=== PATIENT | female | born 1950 | race Two or more races ===

== ENCOUNTER 2017-01-26 09:20 | Day surgery (SDC) | payer OTHER ==
[2017-01-22 11:46] VITALS: BMI 27.3
[~2017-01-26 09:20] MED LIST: LEVOFLOXACIN 500 MG PREMIX BAG IVPB ONE
[2017-01-26] MEDS ORDERED: MIDAZOLAM HCL 2 MG/2 ML SINGLE DOSE VIAL ONE ×2 (11:13→11:20)
[2017-01-26] MEDS ORDERED: LEVOFLOXACIN 500 MG PREMIX BAG IVPB ONE (11:15)
[2017-01-26] MEDS ORDERED: LEVOFLOXACIN 500 MG IVPB 100 ML IVPB ONE (11:18)
[2017-01-26] MEDS ORDERED: ONDANSETRON 4 MG/2 ML VIAL IVPUSH PRN (11:23)
[2017-01-26] MEDS ORDERED: oxyCODONE HCL 5 MG TABLET PO PRN (11:23)
[2017-01-26] MEDS ORDERED: PROMETHAZINE HCL 25 MG/1 ML VIAL IVPUSH PRN (11:23)
[2017-01-26] MEDS ORDERED: LACTATED RINGERS SOLUTION 1,000 ML IV SCH (11:30)
[2017-01-26 12:48] VITALS: TEMP 97.6
--- NOTE | 2017-01-26 13:10 | OP ---
Operative Note - Note: Operative Date: 01/26/17 Pre-Operative Diagnosis: left renal stone Operation: left eswl Findings: 5 mm left renal stone Post-Operative Diagnosis: Same as Pre-op Surgeon: Terry Altamirano Anesthesia: General
[2017-01-26 14:22] VITALS: BP 121/72; PULSE 60
--- NOTE | 2017-01-27 11:01 | OP ---
DATE OF OPERATION: 01/26/2017 PREOPERATIVE DIAGNOSIS: Left renal stone. POSTOPERATIVE DIAGNOSIS: Left renal stone. PROCEDURE: Left extracorporeal shock wave lithotripsy. ATTENDING: Eulalio Barnard MD ANESTHESIA: General. DESCRIPTION OF OPERATION: The patient was brought in the operating room, placed in supine position on the operating room table. Ultrasonography and fluoroscopy were performed. A 5-mm left mid-pole stone was noted. Anesthesia was administered, as was preoperative antibiotics. Then, 2500 impulses at 17 joules of power were administered to the stone to perform lithotripsy. Excellent fragmentation of the stone was noted. No complications were noted. Disposition of the patient was to the recovery room. EULALIO BARNARD M.D. [id number]
== END 2017-01-26 14:22 | disposition home or self-care (01) ==
LOC: JASU-SURG 09:20
PROVIDERS: ATTEND Urology
PROC: 0TF4XZZ Fragmentation in Left Kidney Pelvis, External Approach (ICD-10-PCS; principal; 2017-01-26 11:00)
DX: N20.0 Calculus of kidney (principal)
CPT/HCPCS: 94760

== ENCOUNTER 2019-11-15 11:20 | Emergency (ER) | payer OTHER ==
[2019-11-15 11:35] VITALS: BP 150/90; PULSE 91; TEMP 98.6; BMI 24.7
[2019-11-15] MEDS ORDERED: KETOROLAC TROMETHAMINE 30 MG/1 ML VIAL IVPUSH ONE (11:37)
[2019-11-15] MEDS ORDERED: morphine CARPU-JECT 4 MG/1 ML DISP.SYRIN IM ONE (11:37)
[2019-11-15] MEDS ORDERED: morphine SULFATE 4 MG/ML VIAL ONE (12:02)
[2019-11-15] MEDS ORDERED: KETOROLAC TROMETHAMINE 15 MG/ML VIAL ONE (12:02)
[2019-11-15] MEDS ORDERED: COLCHICINE 0.6 MG CAP PO ONE (12:12)
--- NOTE | 2019-11-15 12:12 | PDOC ---
History of Present Illness - General Chief Complaint: Injury Stated Complaint: LEFT KNEE SWELLING Time Seen by Provider: 11/15/19 11:23 - History of Present Illness Initial Comments: 11/15/19 12:23 69 years old past medical history significant hypertension and asthma presents to the ED with 2-week history of left knee swelling. Patient tripped over her cat approximately 2 weeks ago twisted her knee no direct trauma has had a swollen knee since. Has tried ice elevation and Motrin with no significant improvement pain is moderate to severe 9 out of 10 worse with movement no significant alleviating factors. No recent tick exposures no fever no chills weight loss no other joint involvement Past History - Medical History Allergies/Adverse Reactions: Allergies Allergy/AdvReac Type Severity Reaction Status Date / Time No Known Allergies Allergy Verified 11/15/19 11:21 Home Medications: Ambulatory Orders Albuterol Sulfate Inhaler - [Ventolin Hfa Inhaler -] 1 - 2 inh PO Q4H PRN 01/26/17 Brinzolamide [Azopt] 5 ml OP BID 01/26/17 Budesonide/Formeterol Fumarate [SYMBICORT 160/4.5mcg -] 1 inh PO BID 01/26/17 Fluticasone Propionate [Flovent Diskus] 100 mcg IH BID 01/26/17 Latanoprost 2.5 ml OP HS 01/26/17 Calcium Carbonate/Vitamin D3 [Calcium 600 + Vit D Tablet] 1 each PO BID 11/15/19 Cholecalciferol (Vitamin D3) [Vitamin D3 -] 1,000 unit PO DAILY 11/15/19 Colchicine [Colcrys] 0.6 mg PO DAILY 3 Days #3 tab 11/15/19 Indomethacin [Indocin -] 50 mg PO BID #14 capsule 11/15/19 Losartan Potassium 25 mg PO DAILY 11/15/19 Anemia: Yes (THALASEMIA MINOR) Asthma: Yes Cancer: No Cardiac Disorders: No CVA: No COPD: No CHF: No Dementia: No Diabetes: No GI Disorders: No Disorders: No HTN: Yes Hypercholesterolemia: Yes Liver Disease: No Seizures: No Thyroid Disease: No - Surgical History Orthopedic Surgery: Yes (RIGHT KNEE ARTHROSCOPY) - Psycho-Social/Smoking History Smoking History: Never smoked Have you smoked in the past 12 months: No Information on smoking cessation initiated: No - Substance Abuse Hx (Audit-C & DAST Scrn) How often the patient has a drink containing alcohol: Never Score: In Men: 4 or > Positive; In Women: 3 or > Positive: 0 Screen Result (Pos requires Nsg. Audit-10AR): Negative In the last yr the pt used illegal drug/Rx for NonMed reason: No Score: Yes response is considered Positive: 0 Screen Result (Positive result requires Nsg. DAST-10): Negative Review of Systems - Review of Systems Comments:: 11/15/19 12:23 ROS: A complete review of 10 out of 10 review of systems is taken and is negative apart from what is previously mentioned below and in the HPI. *Physical Exam - Vital Signs Last Vital Signs Temp Pulse Resp BP Pulse Ox 98.6 F 91 H 20 150/90 96 11/15/19 11:20 11/15/19 11:20 11/15/19 11:20 11/15/19 11:20 11/15/19 11:20 - Physical Exam 11/15/19 12:22 Vitals: Triage Vital signs reviewed General Appearance: No acute distress, well nourished well developed, Head: Atraumatic, Extremities:Left knee with effusion limited range of motion secondary to pain no anterior posterior draw, neurovascular intact distally no evidence of cellulitis slight warmth Skin: Warm and dry, no rashes or lesions, no rash, no petechiae Neuro: strength intact to all extremities, sensation intact to all extremities, gait normal Psych: Normal mood, normal affect ED Treatment Course - RADIOLOGY Radiology Studies Ordered: Category Date Time Status KNEE 2 POS-LEFT [RAD] Stat Radiology 11/15/19 11:38 Taken - Medications Given in the ED: ED Medications Discontinued Medications Generic Name Dose Route Start Last Admin Trade Name Freq PRN Reason Stop Dose Admin Ketorolac Tromethamine 15 mg 11/15/19 11:37 11/15/19 12:09 Toradol Injection - IVPUSH 11/15/19 11:38 15 mg ONCE ONE Administration Morphine Sulfate 4 mg 11/15/19 11:37 11/15/19 12:08 Morphine Injection - IM 11/15/19 11:38 4 mg ONCE ONE Administration Medical Decision Making - Medical Decision Making 11/15/19 12:24 X-ray demonstrates [id number] likely arthritic effusion Case discussed with orthopedics will follow-up tomorrow We will treat empirically with colchicine and NSAIDs in case of gouty flare until patient can see orthopedics tomorrow Findings, need for follow-up and strict return instructions discussed with patient. Discharge - Discharge Information Problems reviewed: Yes Clinical Impression/Diagnosis: Knee swelling Disposition: HOME - Admission No - Follow up/Referral Referrals: Corey Vance MD [Staff Physician] - - Patient Discharge Instructions Patient Printed Discharge Instructions: Knee Sprain Additional Instructions: Take indomethacin and colchicine as prescribed. Ice elevate rest. Follow-up tomorrow morning with Dr. Vance at 1120 am, here at the hospital 1 level below main level. Please fill out preregistration information that was sent to you via email online to expedite your appointment. Return to ED for any severe worsening symptoms fever chills redness that develops over the knee or for any concerns. - Post Discharge Activity
[2019-11-15] MEDS ORDERED: COLCHICINE 0.6 MG CAP ONE (12:24)
== END 2019-11-15 12:37 | disposition home or self-care (01) ==
LOC: FER 11:20
PROC: 3E023GC Introduction of Other Therapeutic Substance into Muscle, Percutaneous Approach (ICD-10-PCS; principal; 2019-11-15)
PROC: 3E033GC Introduction of Other Therapeutic Substance into Peripheral Vein, Percutaneous Approach (ICD-10-PCS; principal; 2019-11-15)
DX: M79.89 Other specified soft tissue disorders (principal)
CPT/HCPCS: 73560-TC-LT-FY; 96372; 96374; 99284-25

== ENCOUNTER 2022-04-09 06:16 | Emergency (ER) | payer OTHER ==
[2022-04-09 06:24] VITALS: BP 170/96; PULSE 89; RESP 17; TEMP 99; BMI 24.4
[2022-04-09] MEDS ORDERED: DIPHTH,PERTUSS(ACELL),TET 0.5 ML DISP.SYRIN IM ONE ×2 (06:40→06:41)
[2022-04-09] MEDS ORDERED: ACETAMINOPHEN 500 MG TABLET (FP) PO ONE (06:40)
[2022-04-09] MEDS ORDERED: ACETAMINOPHEN 500 MG TABLET (FP) ONE (06:40)
== END 2022-04-09 10:03 | disposition home or self-care (01) ==
LOC: FER 06:16
PROC: 3E0234Z Introduction of Serum, Toxoid and Vaccine into Muscle, Percutaneous Approach (ICD-10-PCS; principal; 2022-04-09)
DX: S92.401A Displaced unspecified fracture of right great toe, initial encounter for closed fracture (principal); W01.0XXA Fall on same level from slipping, tripping and stumbling without subsequent striking against object, initial encounter
CPT/HCPCS: 71046-TC-FY; 71101-TC-RT-FY; 73660-TC-FY; 90471; 90715; 99284-25

== ENCOUNTER 2023-03-22 08:30 | Emergency (ER) | payer OTHER ==
[2023-03-22] MEDS ORDERED: IBUPROFEN 400 MG TABLET (FP) PO ONE ×2 (08:36→09:00)
[2023-03-22] MEDS ORDERED: ACETAMINOPHEN 325 MG TABLET (FP) PO ONE (08:36)
[2023-03-22 08:54] VITALS: BP 140/101; PULSE 80; RESP 18; TEMP 98.7; BMI 25.4
[2023-03-22] MEDS ORDERED: ACETAMINOPHEN 325 MG TABLET (FP) ONE (09:00)
== END 2023-03-22 10:21 | disposition home or self-care (01) ==
LOC: FER 08:30
DX: M25.562 Pain in left knee (principal); M25.552 Pain in left hip
CPT/HCPCS: 73502-TC-LT-FY; 73562-TC-LT-FY; 99284-25